=== PATIENT | female | born 1975 | race Caucasian/White ===

== ENCOUNTER 2018-05-20 01:26 | Emergency (ER) | payer MEDICARE ==
[2018-05-20 01:46] LABS: Mean Corpuscular HGB CONC 33.2 g/dL (32.0-36.0); Mean Corpuscular Hemoglobin 29.7 pg (27.0-31.0); Mean Corpuscular Volume 89.4 fL (78.0-98.0); Mean Platelet Volume 7.1 fL (7.4-10.4); Platelet Count 260 thou/uL (130-400); RBC Distribution Width 11.8 % (11.5-14.5); Red Blood Cell (RBC) Count 4.39 mill/uL (4.20-5.40); White Blood Cell (WBC) Count 5.9 thou/uL (4.8-10.8)
[2018-05-20 02:10] LABS: ALT (SGPT) 13 U/L (8-55); AST (SGOT) 12 U/L (5-34); Albumin 4.2 g/dL (3.5-5.0); Alkaline Phosphatase 69 U/L (40-150); Anion Gap 14 mmol/L (10-20); BUN (Urea Nitrogen) 14 mg/dL (7.0-18.7); Bilirubin, Total 0.4 mg/dL (0.2-1.2); Calc. Creatinine Clearance 0 mL/min (70-130); Calcium 9.4 mg/dL (7.8-10.44); Carbon Dioxide 23 mmol/L (22-29); Chloride 105 mmol/L (98-107); Estimated GFR-MDRD 77; Globulin 2.9 g/dL (2.4-3.5); Glucose 82 mg/dL (70-105); Potassium 3.7 mmol/L (3.5-5.1); Protein, Total 7.1 g/dL (6.0-8.3); Sodium 138 mmol/L (136-145)
[2018-05-20 02:12] LABS: Band 2 % (5-11); Lymphocytes 44 % (21-51); MDiff Complete? YES; Monocytes 6 % (0-10); Neutrophil 45 % (42-75); Platelet Morphology Comment Appears Adequate; RBC Morphology Normal; Reactive Lymphocytes 3 % (0-10)
[2018-05-20 02:18] LABS: CK (CPK) 70 U/L (29-168); Lipase 17 U/L (8-78)
[2018-05-20] MEDS ORDERED: Lorazepam 2 MG/ML VIAL ONE (02:22)
[2018-05-20] MEDS ORDERED: Fentanyl 100 MCG/2 ML VIAL ONE (02:22)
[2018-05-20] MEDS ORDERED: Dexamethasone 4 mg/ml Vial ONE (02:23)
[2018-05-20] MEDS ORDERED: Albuterol Sulfate 2.5 mg/3 ml Neb ONE (02:24)
[2018-05-20] MEDS ORDERED: Ondansetron PF 4 MG/2 ML Vial ONE (02:28)
--- NOTE | 2018-05-20 08:52 | RAD ---
CHEST ONE VIEW: History: Chest pain, shortness of breath. Comparison: None. FINDINGS: There are bilateral breast implants. There is a dorsal column stimulator overlying the thoracic spine . No consolidation, pleural effusion, or pneumothorax. No acute osseous abnormality is evident. IMPRESSION: No acute cardiopulmonary abnormality. POS: GEOFFREYH
== END 2018-05-20 04:29 | disposition home or self-care (01) ==
LOC: ERS 01:26
DX: J45.901 Unspecified asthma with (acute) exacerbation (principal); G43.709 Chronic migraine without aura, not intractable, without status migrainosus; F41.9 Anxiety disorder, unspecified
CPT/HCPCS: 36415; 71045; 80053; 82550; 83690; 83880; 84484; 85025; 85379; 93005; 94640; 96361; 96374; 96375; J1100; J2060; J2405; J3010; J7611; J7620

== ENCOUNTER 2018-06-23 14:25 | Outpatient (CLI) | payer MEDICARE ==
--- NOTE | 2018-06-23 18:08 | CT ---
CT OF THE THORACIC SPINE WITHOUT CONTRAST: 06/23/18 INDICATION: History of radiculopathy and back pain. COMPARISON: C-arm spot image from 08/20/16 from [facility] [place]. FINDINGS: There is dorsal column stimulator projecting up to the T8 vertebral level as seen on the comparison e xamination. There is a partially calcified left paracentral disc protrusion seen at T10-T11 without a ppreciable central canal narrowing. No definite osseous neural foraminal narrowing is evident. No acu te fracture is evident. Spinal alignment is preserved. The visualized lungs are clear. The visualized aspects of the upper retroperitoneum are within normal limits. A dorsal column stimulator enters the posterior epidural spine at the T8-T9 intervertebral level. IMPRESSION: Mild spondylosis of the thoracic spine. Dorsal column stimulator projecting up to the T8 vertebral level. POS: PAULINO
--- NOTE | 2018-06-23 18:16 | CT ---
LUMBAR SPINE CT NONCONTRAST: 06/23/18 CLINICAL INDICATION: Lumbar radiculopathy. Persistent low back pain. History of prior neural stimulator placement. FINDINGS: Lumbar spine vertebral body heights and alignment are maintained. Disc space heights are relatively w ell preserved. There is no acute facet malalignment or retropulsion of bone into the vertebral canal. There is a partially imaged neural stimulator traversing the soft tissues of the posterior low back ascending above field of view. L5-S1: There is a broad based mild posterior disc bulge effacing the ventral aspect of the terminal t hecal sac. There is no high grade foraminal stenosis. L4-5: There is a broad based concentric disc bulge asymmetric to the left with potential for impinge ment upon the traversing left L5 nerve root. There is mild effacement of the ventral thecal sac. No h igh grade osseous compromise of the neural foramina. There is suggestion of mild left foraminal steno sis. L3-4: No significant compromise of central canal or neural foramina. L2-3: No significant compromise of central canal or neural foramina. L1-2: No significant compromise of central canal or neural foramina. Incidental note of end plate degenerative change at the imaged lower thoracic spine. IMPRESSION: There is mild degenerative change of the lumbar spine as outlined above. The findings are limited by noncontrast CT. As necessary, given the history of radiculopathy, consider follow-up with MRI, or CT myelogram may be obtained when clinically feasible. POS: PAULINO
== END 2018-06-23 14:26 | disposition home or self-care (01) ==
LOC: SCSCT 14:25
PROVIDERS: ATTEND Specialist
DX: M47.26 Other spondylosis with radiculopathy, lumbar region (principal); M47.24 Other spondylosis with radiculopathy, thoracic region
CPT/HCPCS: 72128; 72131

== ENCOUNTER 2018-08-10 14:03 | Outpatient (CLI) | payer MEDICARE | END 2018-08-10 14:04 | disposition home or self-care (01) | LOC: ULT 14:03 | PROVIDERS: ATTEND Internal Medicine Critical Care Medicine | DX: J90 Pleural effusion, not elsewhere classified (principal); I08.1 Rheumatic disorders of both mitral and tricuspid valves; I31.3 Pericardial effusion (noninflammatory) | CPT/HCPCS: 93306 ==

== ENCOUNTER 2018-09-10 12:39 | Emergency (ER) | payer MEDICARE ==
--- NOTE | 2018-09-10 13:25 | RAD ---
Radiograph left hand 3 views: HISTORY: Blunt trauma due to fall FINDINGS: No fracture or dislocation IMPRESSION: Negative
[2018-09-10] MEDS ORDERED: HYDROcodone/Acetaminophen 10/325 mg Tablet ONE (13:26)
--- NOTE | 2018-09-10 13:33 | CT ---
CT maxillofacial noncontrast: 09/10/2018 HISTORY: 42-year-old female status post blunt trauma to the face FINDINGS: At the nasion and adjacent forehead, there is soft tissue swelling. There is no fracture. Orbits are clear. Paranasal sinuses are clear. IMPRESSION: 1. No fracture. 2. Soft tissue contusion at midline.
== END 2018-09-10 13:45 | disposition home or self-care (01) ==
LOC: ERS 12:39
DX: S00.83XA Contusion of other part of head, initial encounter (principal); S60.222A Contusion of left hand, initial encounter; J45.909 Unspecified asthma, uncomplicated; F41.9 Anxiety disorder, unspecified; G43.909 Migraine, unspecified, not intractable, without status migrainosus; W01.0XXA Fall on same level from slipping, tripping and stumbling without subsequent striking against object, initial encounter; Y92.002 Bathroom of unspecified non-institutional (private) residence as the place of occurrence of the external cause
CPT/HCPCS: 70486

== ENCOUNTER 2018-12-08 15:00 | Outpatient (CLI) | payer MEDICARE ==
[2018-12-08 15:59] LABS: Mean Corpuscular HGB CONC 33.7 g/dL (32.0-36.0); Mean Corpuscular Hemoglobin 30.6 pg (27.0-31.0); Mean Corpuscular Volume 90.9 fL (78.0-98.0); Mean Platelet Volume 6.7 fL (7.4-10.4); Platelet Count 252 thou/uL (130-400); RBC Distribution Width 12.2 % (11.5-14.5); Red Blood Cell (RBC) Count 3.92 mill/uL (4.20-5.40); White Blood Cell (WBC) Count 5.5 thou/uL (4.8-10.8)
[2018-12-08 16:05] LABS: INR-International Normal Ratio 0.9; PTT 25.6 SEC (22.9-36.1); Prothrombin Time 11.7 SEC (12.0-14.7)
[2018-12-08 16:15] LABS: Anion Gap 9 mmol/L (10-20); BUN (Urea Nitrogen) 16 mg/dL (7.0-18.7); Calc. Creatinine Clearance 0 mL/min (70-130); Calcium 9.4 mg/dL (7.8-10.44); Carbon Dioxide 29 mmol/L (22-29); Chloride 105 mmol/L (98-107); Estimated GFR-MDRD 73; Glucose 88 mg/dL (70-105); Sodium 139 mmol/L (136-145)
== END 2018-12-08 15:01 | disposition home or self-care (01) ==
LOC: LABBT 15:00
PROVIDERS: ATTEND Surgery
DX: Z01.818 Encounter for other preprocedural examination (principal); G90.50 Complex regional pain syndrome I, unspecified
CPT/HCPCS: 80048; 85027; 85610; 85730; 93005; 93010

== ENCOUNTER 2019-05-11 08:49 | Emergency (ER) | payer MEDICARE ==
--- NOTE | 2019-05-11 10:11 | CT ---
EXAM: CT brain without contrast HISTORY: Fall with inability to get back up. Hypotension. COMPARISON: None TECHNIQUE: Multiple contiguous axial images were obtained and a CT of the brain without contrast. FINDINGS: The brain is normal in morphology and attenuation without focal lesions or confluent areas of infarction. There is no evidence of hydrocephalus, intracranial hemorrhage, or extra-axial fluid collection. The calvarium and overlying soft tissues are unremarkable. The visualized paranasal sinuses and masto id air cells are well aerated. IMPRESSION: No evidence of acute intracranial abnormality
[2019-05-11 10:13] LABS: #Eosinphils 0.1 thou/uL (0.0-0.7); #Lymphocytes 1.4 thou/uL (1.20-3.40); #Monocytes 0.3 thou/uL (0.11-0.59); #Neutrophils 1.9 thou/uL (1.40-6.50); %Basophils 0.9 % (0.0-1.0); %Eosinophils 3.1 % (0.0-10.0); %Lymphocytes 38.1 % (21.0-51.0); Hemoglobin 9.8 g/dL (12.0-16.0); Mean Corpuscular HGB CONC 33.7 g/dL (32.0-36.0); Mean Corpuscular Hemoglobin 29.8 pg (27.0-31.0); Mean Corpuscular Volume 88.5 fL (78.0-98.0); Mean Platelet Volume 7.2 fL (7.4-10.4); Platelet Count 163 thou/uL (130-400); RBC Distribution Width 11.5 % (11.5-14.5); White Blood Cell (WBC) Count 3.8 thou/uL (4.8-10.8)
--- NOTE | 2019-05-11 10:15 | RAD ---
EXAM: Single view of the chest HISTORY: Hypotension. Fall. COMPARISON: 05/20/2018 FINDINGS: Single view of the chest shows a normal sized cardiomediastinal silhouette. There is no shania dence of consolidation, mass, or pleural effusion. The bones are unremarkable. IMPRESSION: No evidence of acute cardiopulmonary disease
[2019-05-11 10:29] LABS: ALT (SGPT) 8 U/L (8-55); AST (SGOT) 10 U/L (5-34); Alkaline Phosphatase 70 U/L (40-110); Anion Gap 9 mmol/L (10-20); BUN (Urea Nitrogen) 9 mg/dL (7.0-18.7); Bilirubin, Total 0.4 mg/dL (0.2-1.2); Calc. Creatinine Clearance 0 mL/min (70-130); Calcium 7.4 mg/dL (7.8-10.44); Carbon Dioxide 26 mmol/L (22-29); Chloride 110 mmol/L (98-107); Estimated GFR-MDRD Greater than 90; Globulin 1.8 g/dL (2.4-3.5); Glucose 102 mg/dL (70-105); Potassium 3.5 mmol/L (3.5-5.1); Protein, Total 4.8 g/dL (6.0-8.3); Sodium 141 mmol/L (136-145)
[2019-05-11 10:34] LABS: Bilirubin Negative (Negative); Blood, Urine Negative (Negative); Clarity Clear (Clear); Glucose, Urine (Dipstick) Normal (Negative); Leukocyte Negative Leu/uL (Negative); Nitrite Negative (Negative); Protein, Urine (Dipstick) Negative (Neg-Trace); Urobilinogen Normal mg/dL (Less than 2)
[2019-05-11 10:44] LABS: Amphetamine Not Detected (NotDetected); Barbiturates Screen Not Detected (NotDetected); Benzodiazepine Screen Not Detected (NotDetected); Cocaine Metabolite Screen Not Detected (NotDetected); Medtox Control Line Valid? VALID (VALID); Medtox Reader # READER 1; Methadone Not Detected (NotDetected); Methamphetamine Not Detected (NotDetected); Opiate Screen Detected (NotDetected); Oxycodone Screen Not Detected (NotDetected); Phencyclidine (PCP) Not Detected (NotDetected); THC/Cannabinoid Screen Not Detected (NotDetected); Tricyclic Screen Not Detected (NotDetected)
--- NOTE | 2019-05-13 15:33 | EKG ---
Test Reason : Blood Pressure : / mmHG Vent. Rate : 069 BPM Atrial Rate : 069 BPM P-R Int : 180 ms QRS Dur : 086 ms QT Int : 462 ms P-R-T Axes : 051 056 057 degrees QTc Int : 495 ms Normal sinus rhythm Prolonged QT Abnormal ECG Confirmed by ZOE OLVERA, JORDYN ([id number]), dictionary editor MADI LITTLEJOHN ([id number]) on 05/13/2019 3:33:06 PM Referred By: Confirmed By:JORDYN ENRIQUEZ MD
== END 2019-05-11 11:17 | disposition home or self-care (01) ==
LOC: ERS 08:49
DX: I95.9 Hypotension, unspecified (principal); D64.9 Anemia, unspecified; J45.909 Unspecified asthma, uncomplicated; G43.909 Migraine, unspecified, not intractable, without status migrainosus; F41.9 Anxiety disorder, unspecified; Z79.899 Other long term (current) drug therapy
CPT/HCPCS: 70450; 71045; 80053; 80306; 81003; 84484; 85025; 93005; 94760; 96360

== ENCOUNTER 2019-08-20 13:01 | Emergency (ER) | payer MEDICARE, OTHER ==
[2019-08-20 13:45] LABS: #Eosinphils 0.2 thou/uL (0.0-0.7); #Monocytes 0.3 thou/uL (0.11-0.59); %Basophils 0.7 % (0.0-1.0); %Eosinophils 4.3 % (0.0-10.0); %Lymphocytes 36.2 % (21.0-51.0); %Neutrophils 52.9 % (42.0-75.0); Hemoglobin 12.6 g/dL (12.0-16.0); Mean Corpuscular HGB CONC 34.1 g/dL (32.0-36.0); Mean Corpuscular Volume 87.9 fL (78.0-98.0); Mean Platelet Volume 7.1 fL (7.4-10.4); Platelet Count 207 thou/uL (130-400); RBC Distribution Width 12.1 % (11.5-14.5); Red Blood Cell (RBC) Count 4.19 mill/uL (4.20-5.40); White Blood Cell (WBC) Count 5.7 thou/uL (4.8-10.8)
[2019-08-20 14:06] LABS: ALT (SGPT) 75 U/L (8-55); AST (SGOT) 61 U/L (5-34); Albumin 3.9 g/dL (3.5-5.0); Alkaline Phosphatase 136 U/L (40-110); Anion Gap 14 mmol/L (10-20); BUN (Urea Nitrogen) 17 mg/dL (7.0-18.7); Bilirubin, Total 0.3 mg/dL (0.2-1.2); Calc. Creatinine Clearance 0 mL/min (70-130); Calcium 9.5 mg/dL (7.8-10.44); Carbon Dioxide 22 mmol/L (22-29); Chloride 105 mmol/L (98-107); Estimated GFR-MDRD 68; Glucose 88 mg/dL (70-105); Protein, Total 6.9 g/dL (6.0-8.3); Sodium 137 mmol/L (136-145)
[2019-08-20] MEDS ORDERED: Acetaminophen 500 MG TAB ONE (15:24)
[2019-08-20] MEDS ORDERED: Ketorolac Tromethamine 30 MG/ML VIAL ONE (15:24)
[2019-08-20 15:29] LABS: Bilirubin Negative (Negative); Blood, Urine Negative (Negative); Clarity Clear (Clear); Glucose, Urine (Dipstick) Normal (Negative); Leukocyte Negative Leu/uL (Negative); Nitrite Negative (Negative); Protein, Urine (Dipstick) Negative (Neg-Trace); Urobilinogen Normal mg/dL (Less than 2)
--- NOTE | 2019-08-20 15:48 | RAD ---
Chest AP view INDICATION: COVID testing negative; persistent sore throat and cough with chest pressure COMPARISON: Prior chest radiograph dated October 10, 2019. FINDINGS: Lungs: Low lung volumes. No acute airspace opacity or consolidation. Cardiac silhouette: The cardiomediastinal silhouette appears within normal limits. Pulmonary vasculature: Normal Pleural spaces: No pleural effusion or pneumothorax is demonstrated. Upper abdomen: No abnormality seen. Osseous structures: No acute osseous abnormality. Additional findings: None. IMPRESSION: No acute cardiopulmonary abnormality.
[2019-08-20] MEDS ORDERED: Morphine 4 MG/ML VIAL ONE (15:49)
[2019-08-21 17:54] LABS: SARS-CoV-2 MS2 Positive; SARS-CoV-2 N Gene Negative; SARS-CoV-2 S Gene Negative; SARS-CoV-2 orf1ab Negative
--- NOTE | 2019-08-23 13:25 | EKG ---
Test Reason : Blood Pressure : / mmHG Vent. Rate : 089 BPM Atrial Rate : 089 BPM P-R Int : 168 ms QRS Dur : 080 ms QT Int : 386 ms P-R-T Axes : 033 021 026 degrees QTc Int : 469 ms Normal sinus rhythm Possible Left atrial enlargement Borderline ECG Confirmed by RADHA MATT ([id number]), fan mail editor CHUCK RUELAS ([id number]) on 08/23/2019 1:25:34 PM Referred By: Confirmed By:RADHA MATT
== END 2019-08-20 17:10 | disposition home or self-care (01) ==
LOC: ERS 13:01
DX: J06.9 Acute upper respiratory infection, unspecified (principal); J45.901 Unspecified asthma with (acute) exacerbation; G43.909 Migraine, unspecified, not intractable, without status migrainosus; F41.9 Anxiety disorder, unspecified; Z20.828 Contact with and (suspected) exposure to other viral communicable diseases; Z79.891 Long term (current) use of opiate analgesic; Z79.899 Other long term (current) drug therapy
CPT/HCPCS: 71045; 80053; 81003; 83605; 85025; 87804 ×2; 93005; 94760; 96374; 96375; 99284; U0002; 36415; 87635; J1885; J2270; U0003

== ENCOUNTER 2020-01-08 09:19 | Outpatient (CLI) | payer MEDICARE ==
--- NOTE | 2020-01-08 11:02 | ULT ---
RIGHT LOWER EXTREMITY VENOUS DUPLEX EXAM: Date: 01/08/2020 Deep veins of right lower extremity evaluated with ultrasound and Doppler with color Doppler, spectra l analysis, and compression. INDICATINO: Right lower extremity pain and edema. FINDINGS: Deep veins of right lower extremity show normal blood flow and compression. No evidence of deep venou s thrombosis. IMPRESSION: No evidence of right lower extremity deep venous thrombosis. POS: AH
== END 2020-01-08 09:20 | disposition home or self-care (01) ==
LOC: BICULT 09:19
PROVIDERS: ATTEND Specialist
DX: M79.89 Other specified soft tissue disorders (principal)

== ENCOUNTER 2020-04-24 07:35 | Outpatient (CLI) | payer MEDICARE ==
--- NOTE | 2020-04-24 09:48 | CT ---
CT of thethoracic spine: 04/24/2020 COMPARISON:06/23/2018 HISTORY:Back pain radiating into the right lower extremity, radiculopathy, bilateral leg tingling TECHNIQUE: Serial axial CT imaging at3 mm intervals from thelower cervical spine through the thoracol umbar junction without contrast. Coronal and sagittal reformatted imaging obtained Findings:Evaluation for central canal and/or neural foraminal stenosis is limited on routine CT. Partially imaged upper abdomen demonstrates no acute findings. Partially imaged lung parenchyma demonstrates no acute findings. The dorsal column stimulating device present on the prior examination extending into the lumbar spine is no longer present. Beta Tester imaging demonstrates prominent stool within the colon on the left and there are stimulating leads ove rlying the lumbosacral junction on the brattice builder radiograph. At the C7-T1, T1-2, T2-3, T3-4, T4-5, T5-6, T6-7, T7-8, T8-9, and T9-10 levels there is no osseous ca use of significant central canal or neural foraminal stenosis. There is evidence of prior surgery involving the posterior elements at the T9 level. At T10-11 there is mild superior osteophyte formation and the left paracentral region with no signifi cant central canal or neural foraminal stenosis on the basis of an osseous abnormality. At T11-12 there is a disc herniation in the right paracentral region measuring 6 mm in AP dimension w ith probable mild right lateral central canal stenosis. No osseous cause of significant neural foraminal stenosis. At T12-L1 there is no osseous cause of significant central canal or neural foraminal stenosis. There is a small left paracentral disc protrusion present at the T10-11 level. No evidence for an acute fracture or dislocation is seen. There is no worrisome lytic or blastic bone lesion noted. Impression:Degenerative and postoperative changes as detailed above. If there are radicular symptoms and the patient is able, MRI of the thoracic spine may be beneficial. Alternatively, CT myelogram could be performed to evaluate for central canal and/or neural foraminal stenosis.
== END 2020-04-24 07:36 | disposition home or self-care (01) ==
LOC: BICCT 07:35
PROVIDERS: ATTEND Specialist
DX: M47.24 Other spondylosis with radiculopathy, thoracic region (principal); Z98.890 Other specified postprocedural states
CPT/HCPCS: 72128

== ENCOUNTER 2021-01-01 23:22 | Observation (INO) | payer MEDICARE, MEDICAID ==
[2021-01-01 23:55] LABS: Hemoglobin 10.6 g/dL (12.0-16.0); Mean Corpuscular HGB CONC 32.6 g/dL (32.0-36.0); Mean Corpuscular Hemoglobin 29.2 pg (27.0-31.0); Mean Corpuscular Volume 89.5 fL (78.0-98.0); Mean Platelet Volume 7.1 fL (7.4-10.4); Platelet Count 258 thou/uL (130-400); RBC Distribution Width 12.8 % (11.5-14.5); Red Blood Cell (RBC) Count 3.65 mill/uL (4.20-5.40); White Blood Cell (WBC) Count 4.6 thou/uL (4.8-10.8)
[2021-01-02 00:07] LABS: BHCG - Serum Negative (NEGATIVE); Pregs Control Background? CLEAR/WHITE (CLR/WHITE); Pregs Control Bar Appear? YES (CONTROL BAR)
[2021-01-02 00:13] LABS: Eosinophils 1 % (0-10); Hypochromia SLIGHT = 6-15 cells (100X) (0-5/hpf); Lymphocytes 64 % (21-51); MDiff Complete? YES; Monocytes 1 % (0-10); Neutrophil 34 % (42-75); Platelet Morphology Comment Appears Adequate
[2021-01-02] MEDS ORDERED: Ketorolac Tromethamine 30 MG/ML VIAL ONE (00:17)
[2021-01-02] MEDS ORDERED: Acetaminophen 500 MG TAB ONE (00:17)
[2021-01-02] MEDS ORDERED: Morphine 4 MG/ML VIAL ONE (00:17)
[2021-01-02] MEDS ORDERED: Ondansetron PF 4 MG/2 ML Vial ONE (00:17)
[2021-01-02 00:18] LABS: ALT (SGPT) 10 U/L (8-55); AST (SGOT) 12 U/L (5-34); Albumin 3.3 g/dL (3.5-5.0); Alkaline Phosphatase 74 U/L (40-110); Anion Gap 9 mmol/L (10-20); BUN (Urea Nitrogen) 18 mg/dL (7.0-18.7); Bilirubin, Total 0.2 mg/dL (0.2-1.2); Calc. Creatinine Clearance 0 mL/min (70-130); Calcium 8.6 mg/dL (7.8-10.44); Carbon Dioxide 25 mmol/L (22-29); Chloride 110 mmol/L (98-107); Globulin 2.6 g/dL (2.4-3.5); Glucose 107 mg/dL (70-105); Potassium 3.4 mmol/L (3.5-5.1); Protein, Total 5.9 g/dL (6.0-8.3); Sodium 141 mmol/L (136-145)
[2021-01-02 02:28] LABS: Bilirubin Negative (Negative); Blood, Urine Negative (Negative); Clarity Turbid (Clear); Glucose, Urine (Dipstick) Normal (Negative); Ketone, Urine Negative (Negative); Leukocyte 500 Leu/uL (Negative); Nitrite Negative (Negative); Protein, Urine (Dipstick) 20 mg/dL (Neg-Trace); Specific Gravity, Urine 1.032 (1.002-1.036); Squamous Epithelial 0-3 HPF (0-3); Urobilinogen Normal mg/dL (Less than 2); WBC/HPF Greater than 50 HPF (0-3)
[2021-01-02 02:30] LABS: Bacteria/HPF 1+ HPF (None Seen); RBC/HPF 0-3 HPF (0-3); Yeast-Budding 2+ HPF (None Seen)
[2021-01-02] MEDS ORDERED: Cefepime 1 GM VIAL ONE (02:44)
[2021-01-02] MEDS ORDERED: Hydrocortisone Sod Succ/PF 100 mg/2 ml Vial IVP SCH (03:30)
[2021-01-02] MEDS ORDERED: Norepinephrine 8 MG/0.9% NS 250 ML ONE (03:44)
[2021-01-02] MEDS ORDERED: Lidocaine 1% PF 5 ML VIAL ONE ×3 (04:00→04:55)
[2021-01-02] MEDS ORDERED: Hydrocortisone Sod Succ/PF 100 mg/2 ml Vial ONE (05:17)
[2021-01-02] MEDS ORDERED: Acetaminophen 325 MG TAB PO PRN (05:59)
[2021-01-02] MEDS ORDERED: Ondansetron ODT 4 MG TAB PO PRN (05:59)
[2021-01-02] MEDS ORDERED: HYDROcodone/Acetaminophen 7.5/325 mg Tablet PO PRN (05:59)
[2021-01-02] MEDS ORDERED: cefTRIAXone\\ROCEPHIN 2 GM in Sodium Chloride 0.9% 100 ML IVPB SCH (06:00)
[2021-01-02] MEDS ORDERED: Lactated Ringer's 1,000 ML IV SCH (06:00)
[2021-01-02] MEDS ORDERED: Norepinephrine 8 MG/0.9% NS 250 ML IVPB SCH (06:00)
[2021-01-02 06:47] LABS: SARS-CoV-2 NAA Rapid Test Not Detected (NotDetected)
[2021-01-02 08:18] VITALS: BMI 24.4
[2021-01-02 08:18] LABS: #Eosinphils 0.2 thou/uL (0.0-0.7); #Lymphocytes 1.5 thou/uL (1.20-3.40); #Monocytes 0.2 thou/uL (0.11-0.59); #Neutrophils 1.5 thou/uL (1.40-6.50); %Basophils 1.1 % (0.0-1.0); %Eosinophils 4.7 % (0.0-10.0); %Neutrophils 44.1 % (42.0-75.0); Hemoglobin 10.3 g/dL (12.0-16.0); Mean Corpuscular HGB CONC 32.5 g/dL (32.0-36.0); Mean Corpuscular Hemoglobin 29.5 pg (27.0-31.0); Mean Corpuscular Volume 90.7 fL (78.0-98.0); Mean Platelet Volume 7.7 fL (7.4-10.4); Platelet Count 183 thou/uL (130-400); RBC Distribution Width 12.7 % (11.5-14.5); Red Blood Cell (RBC) Count 3.48 mill/uL (4.20-5.40); White Blood Cell (WBC) Count 3.3 thou/uL (4.8-10.8)
[2021-01-02 08:29] LABS: ALT (SGPT) 10 U/L (8-55); AST (SGOT) 12 U/L (5-34); Alkaline Phosphatase 73 U/L (40-110); Anion Gap 8 mmol/L (10-20); BUN (Urea Nitrogen) 13 mg/dL (7.0-18.7); Bilirubin, Total 0.2 mg/dL (0.2-1.2); Calc. Creatinine Clearance 104 mL/min (70-130); Calcium 7.5 mg/dL (7.8-10.44); Carbon Dioxide 23 mmol/L (22-29); Chloride 113 mmol/L (98-107); Globulin 2.3 g/dL (2.4-3.5); Glucose 110 mg/dL (70-105); Potassium 3.5 mmol/L (3.5-5.1); Protein, Total 5.3 g/dL (6.0-8.3); Sodium 140 mmol/L (136-145)
[2021-01-02] MEDS ORDERED: Vancomycin 1 GM in Premix Bag 1 BAG IVPB SCH (09:00)
[2021-01-02] MEDS ORDERED: Enoxaparin Sodium 30 MG/0.3 ML SYRINGE SC SCH (09:00)
[2021-01-02 11:22] VITALS: TEMP 97.7
[2021-01-02 13:34] VITALS: BP 140/89
[2021-01-02] MEDS ORDERED: Nortriptyline HCl 25 MG CAP PO SCH (21:00)
[2021-01-02] MEDS ORDERED: Atorvastatin Calcium 10 MG TAB PO SCH (21:00)
[2021-01-02] MEDS ORDERED: Fish Oil 1,000 MG CAP PO SCH (21:00)
== END 2021-01-02 13:27 | disposition home or self-care (01) ==
LOC: ERS 23:22 → CCU 01-02 03:50 → INTOOBSV 01-02 03:50 → 2NO 01-02 12:37
PROVIDERS: ADMIT Internal Medicine; ATTEND Internal Medicine
PROC: 2W3TX2Z Immobilization of Left Foot using Cast (ICD-10-PCS; principal; 2021-01-02)
DX: S92.322A Displaced fracture of second metatarsal bone, left foot, initial encounter for closed fracture (principal); E86.0 Dehydration; I95.89 Other hypotension; G89.4 Chronic pain syndrome; M54.9 Dorsalgia, unspecified; R00.1 Bradycardia, unspecified; G43.709 Chronic migraine without aura, not intractable, without status migrainosus; I34.1 Nonrheumatic mitral (valve) prolapse; Z79.899 Other long term (current) drug therapy; Z88.5 Allergy status to narcotic agent; Z91.010 Allergy to peanuts; Z91.038 Other insect allergy status; Z20.822 Contact with and (suspected) exposure to COVID-19; W10.8XXA Fall (on) (from) other stairs and steps, initial encounter
CPT/HCPCS: 28470; 71045; 73610; 73630; 80053; 83605; 84145; 84484; 84703; 85025; 87040; 87086; 93005; 97116; 97139; U0002; 36415; 36556; 51701; 81003; 81015; 84443; 96365; 96366; 96375; J0692; J0696; J1650; J1720; J1885; J2270; J2405; J3370; J3490; J7120

== ENCOUNTER 2023-02-10 14:06 | Emergency (ER) | payer OTHER, MEDICAID | END 2023-02-10 18:16 | disposition home or self-care (01) | LOC: ERS 14:06 | DX: G47.9 Sleep disorder, unspecified (principal) | CPT/HCPCS: 99282 ==